=== PATIENT | male | born 1980 | race Hispanic/Latino ===

== ENCOUNTER → 2018-08-21 | Outpatient (CLI) | payer MEDICAID ==
[~2018-08-21] MED LIST: IOHEXOL-350 50ML VIAL IV ONE
== END | disposition home or self-care (01) ==
LOC: RAH 11:30
PROVIDERS: ATTEND Family Medicine
DX: H70.10 Chronic mastoiditis, unspecified ear (principal); G93.5 Compression of brain
CPT/HCPCS: 70470; Q9967

== ENCOUNTER 2018-10-31 00:28 | Emergency (ER) | payer MEDICAID ==
[2018-10-31 02:00] LABS: BASOPHILS % (AUTO) 0.5 % (0.0-5.0); EOSINOPHILS % (AUTO) 0.7 % (0.0-8.0); HEMATOCRIT 48.9 % (42-54); LYMPHOCYTES % (AUTO) 16.1 % (21.0-51.0); MEAN CORPUSCULAR HEMOGLOBIN 31.2 pg (27.0-33.0); MEAN CORPUSCULAR HGB CONC 34.7 g/dL (32.0-36.0); MEAN CORPUSCULAR VOLUME 89.9 fL (79-99); MONOCYTES % (AUTO) 6.2 % (3.0-13.0); NEUTROPHILS % (AUTO) 76.5 % (40.0-77.0); NUCLEATED RED BLOOD CELLS 0.1 % (0.0-0.19); PLATELET COUNT (AUTO) 212 K/uL (130-400); RED BLOOD CELL COUNT(AUTO) 5.44 MIL/uL (4.50-6.20); RED CELL DISTRIBUTION WIDTH 12.8 % (11.0-15.5); WHITE BLOOD COUNT (AUTO) 7.6 K/uL (4.8-10.8)
[2018-10-31 02:09] LABS: CREATININE 0.7 mg/dL (0.5-1.5); POTASSIUM 4.1 mmol/L (3.5-5.1)
[2018-10-31 02:14] LABS: BILIRUBIN,TOTAL 0.5 mg/dL (0.2-1.0); TOTAL PROTEIN, SERUM 7.8 g/dL (6.0-8.3)
[2018-10-31 02:18] LABS: APPEARANCE,URINE Clear (CLEAR); BILIRUBIN,URINE Negative (NEGATIVE); COLOR,URINE Yellow (YELLOW); GLUCOSE, URINE (UA) Negative (NEGATIVE); KETONES,URINE Negative (NEGATIVE); LEUKOCYTE ESTERASE ,URINE Negative (NEGATIVE); NITRATE,URINE Negative (NEGATIVE); OCCULT BLOOD,URINE Negative (NEGATIVE); PH,URINE 7.5 (5.0-8.0); PROTEIN,URINE Negative (NEGATIVE); UROBILINOGEN,URINE 0.2 mg/dL (0.2-1.0)
== END 2018-10-31 02:39 | disposition home or self-care (01) ==
LOC: EDH 00:28
DX: F41.9 Anxiety disorder, unspecified (principal); E86.0 Dehydration; I10 Essential (primary) hypertension; F32.9 Major depressive disorder, single episode, unspecified; Z98.890 Other specified postprocedural states
CPT/HCPCS: 36415; 80053; 81003; 85025

== ENCOUNTER 2019-09-26 14:46 | Emergency (ER) | payer MEDICAID ==
[2019-09-26] MEDS ORDERED: KETOROLAC TROMETHAMINE 30MG/ML ONE (15:55)
[2019-09-26] MEDS ORDERED: CLINDAMYCIN 600 MG/D5% WATER 50 ML IV ONE (15:55)
[2019-09-26 16:23] LABS: BASOPHILS % (AUTO) 0.3 % (0.0-5.0); EOSINOPHILS % (AUTO) 1.5 % (0.0-8.0); HEMATOCRIT 46.8 % (42-54); LYMPHOCYTES % (AUTO) 12.7 % (21.0-51.0); MEAN CORPUSCULAR HEMOGLOBIN 29.9 pg (27.0-33.0); MEAN CORPUSCULAR HGB CONC 34.6 g/dL (32.0-36.0); MEAN CORPUSCULAR VOLUME 86.3 fL (79-99); MONOCYTES % (AUTO) 8.1 % (3.0-13.0); NEUTROPHILS % (AUTO) 77.1 % (40.0-77.0); PLATELET COUNT (AUTO) 177 K/uL (130-400); RED BLOOD CELL COUNT(AUTO) 5.42 MIL/uL (4.50-6.20); RED CELL DISTRIBUTION WIDTH 12.9 % (11.0-15.5)
[2019-09-26 16:44] LABS: CREATININE 0.6 mg/dL (0.5-1.5); POTASSIUM 3.9 mmol/L (3.5-5.1)
[2019-09-26 16:49] LABS: ALBUMIN 4.1 g/dL (3.5-5.0); BILIRUBIN,TOTAL 0.9 mg/dL (0.2-1.0); TOTAL PROTEIN, SERUM 7.4 g/dL (6.0-8.3)
== END 2019-09-26 17:19 | disposition home or self-care (01) ==
LOC: EDH 14:46
DX: K02.9 Dental caries, unspecified (principal); L03.211 Cellulitis of face; I10 Essential (primary) hypertension; F41.9 Anxiety disorder, unspecified; F31.9 Bipolar disorder, unspecified; Z72.0 Tobacco use
CPT/HCPCS: 36415; 80053; 85025; 96365; 96375; 99284; J1885; J3490

== ENCOUNTER 2020-09-02 00:26 | Emergency (ER) | payer MEDICAID ==
[2020-09-02 01:40] LABS: BASOPHILS % (AUTO) 0.8 % (0.0-5.0); EOSINOPHILS % (AUTO) 3.2 % (0.0-8.0); HEMATOCRIT 45.4 % (42-54); LYMPHOCYTES % (AUTO) 26.3 % (21.0-51.0); MEAN CORPUSCULAR VOLUME 85.7 fL (79-99); MONOCYTES % (AUTO) 8.3 % (3.0-13.0); NEUTROPHILS % (AUTO) 61.2 % (40.0-77.0); PLATELET COUNT (AUTO) 227 K/uL (130-400); RED CELL DISTRIBUTION WIDTH 13.2 % (11.0-15.5); WHITE BLOOD COUNT (AUTO) 8.2 K/uL (4.8-10.8)
[2020-09-02 02:30] LABS: APPEARANCE,URINE Clear (CLEAR); BILIRUBIN,URINE Negative (NEGATIVE); COLOR,URINE Yellow (YELLOW); GLUCOSE, URINE (UA) Negative (NEGATIVE); KETONES,URINE Trace mg/dL (NEGATIVE); LEUKOCYTE ESTERASE ,URINE Negative (NEGATIVE); NITRATE,URINE Negative (NEGATIVE); OCCULT BLOOD,URINE Negative (NEGATIVE); PH,URINE 6.5 (5.0-8.0); PROTEIN,URINE Negative (NEGATIVE)
[2020-09-02 02:40] LABS: AMPHET/METH SCREEN,URINE NEGATIVE (NEGATIVE); BARBITURATE SCREEN, URINE NEGATIVE (NEGATIVE); BENZODIAZEPINES SCREEN,URINE NEGATIVE (NEGATIVE); CANNABINOID SCREEN,URINE NEGATIVE (NEGATIVE); COCAINE SCREEN,URINE NEGATIVE (NEGATIVE); OPIATE SCREEN,URINE NEGATIVE (NEGATIVE); PHENCYCLIDINE SCREEN,URINE NEGATIVE (NEGATIVE)
[2020-09-02] MEDS ORDERED: CEFTRIAXONE SODIUM 1 GM ONE (04:19)
[2020-09-02] MEDS ORDERED: METHYLPREDNISOLONE SOD SUCC 40MG/ML 1ML ONE (04:19)
== END 2020-09-02 06:07 | disposition home or self-care (01) ==
LOC: EDH 00:26
DX: J20.9 Acute bronchitis, unspecified (principal); F41.9 Anxiety disorder, unspecified; F32.9 Major depressive disorder, single episode, unspecified; I10 Essential (primary) hypertension
CPT/HCPCS: 36415; 71045; 80305; 81003; 84484 ×2; 85025; 93005; 96365; 96375; 99285; J0696; J2920

== ENCOUNTER 2024-10-08 21:21 | Emergency (ER) | payer MEDICAID ==
[~2024-10-08] VITALS: Ht 149.9 cm; Wt 67.6 kg
--- NOTE | 2024-10-08 23:38 | ERN ---
General Chief Complaint: Hypertension Stated Complaint: HIGH BLOOD PRESSURE Time Seen by MD: 22:36 Source: patient History of Present Illness Initial Comments Patient has known high blood pressure. Today he had a headache and he measured his blood pressure at home and it was over 200 systolic with a diastolic blood pressure of about 100. So he comes in for treatment. Patient takes losartan regularly and then PRN hydrochlorothiazide for episodes of hypertension. The headache is frontal. Allergies: Coded Allergies: No Known Drug Allergies (Unverified Allergy, Unknown, 10/31/18) Past Medical History Past Medical History: Hypertension Past Surgical History: None ROS Dictation Patient's review of systems is otherwise negative. No lightheadedness no upper respiratory tract infections no chest pain no shortness of breath. Physical Exam General Appearance: (+) no apparent distress Orientation: (+) oriented x 3 Head/Face Trauma: No Eye: bilateral eye normal inspection, bilateral eye PERRL, bilateral eye EOMI Ear, Nose, Throat: (+) hearing grossly normal, (+) moist mucous membraine Neck: (+) normal inspection, (+) supple Respiratory: (+) chest non-tender, (+) lungs clear, (+) well ventilated Heart: (+) regular, (+) no gallop Vascular: (+) no edema, (+) normal peripheral pulse Gastrointestinal: (+) soft, (+) non-tender, (+) bowel sound present MDM Patient's current blood pressure in the ED is 153/106 with a pulse of 79 respirations 20. I will give the patient a single dose of hydralazine. Was taken to a private room in the emergency room and then his blood pressure remeasured as he was lying down and the blood pressure was even lower at 147 systolic. He does state that he has anxiety but he is feeling better and I canceled the order for the hydralazine. I will give him some Toradol for his headache and discharge him from the hospital. ED Course Orders Procedure Category Date Status Time Hydralazine 20mg Inj PHA 10/09/24 Complete (Apresoline 20mg In 00:00 Current Medications Medications (Trade) Dose Ordered Sig/Celeste Route PRN Reason Start Time Stop Time Status Last Admin Dose Admin Hydralazine HCl (APRESOLine 20MG INJ) 20 mg ONCE ONCE IV 10/09/24 00:00 10/09/24 00:01 DC Vital Signs Date Time Temp Pulse Resp B/P (MAP) Pulse Ox O2 Delivery O2 Flow Rate FiO2 10/08/24 23:01 79 20 153/106 100 Room Air* 0 21 10/08/24 21:50 98.2 80 20 106/102 97 Room Air DX & DISP Disposition: Discharge Departure Impression: Primary Impression: Headache Additional Impression: Hypertension Condition: Stable Additional Instructions: Please drink plenty of fluid. Please see your primary care physician regarding adjusting your blood pressure medications. And also some medication for what sound like could be tension headaches. Referrals: GERARDO PEREZ MD (PCP) DAFNE DONAHUE MD October 08, 2024 23:38
[2024-10-09] MEDS ORDERED: hydrALAZine 20MG/ML VIAL IV ONE
[2024-10-09 00:07] VITALS: BP 141/71; PULSE 77; RESP 16; TEMP 98.1; O2SAT 97
--- NOTE | 2024-10-09 00:08 | NUR ---
PATIENT VITAL RETAKEN AND REPORTED TO DR DONAHUE, HYDRALAZINE CANCELED. FRONTAL HEADACHE REPORTED, PENDING MEDICATION TO BE ORDERED BY PHYSICIAN
--- NOTE | 2024-10-09 00:21 | NUR ---
PO TORADOL OUT OF STOCK, PHARMACY CALLED, PENDING MEDICATION
[2024-10-09] MEDS: ketOROlac 10 MG TABLET PO SCH (00:36)
== END 2024-10-09 00:39 | disposition home or self-care (01) ==
LOC: EDH 21:21
DX: R51.9 Headache, unspecified (principal); I10 Essential (primary) hypertension
CPT/HCPCS: 99283; J0360